=== PATIENT | female | born 1990 | race Caucasian/White ===

== ENCOUNTER 2019-03-07 04:12 | Inpatient (IN) ==
[2019-03-07] MEDS ORDERED: OXYTOCIN 30 UNITS/500 ML BAG IV PRN ×2 (04:48→14:29)
[2019-03-07] MEDS ORDERED: PENICILLIN G POTASSIUM 3 MU in DEXTROSE 5% 100 ML IV PRN (05:00)
[2019-03-07] MEDS ORDERED: PENICILLIN G POTASSIUM 6 MU in DEXTROSE 5% 250 ML IV ONE (05:00)
[2019-03-07] MEDS: LACTATED RINGER'S 1,000 ML IV PRN ×3 (05:06→10:48)
[2019-03-07] MEDS ORDERED: fentaNYL citrate 100 MCG/2 ML VIAL ONE (05:24)
[2019-03-07] MEDS ORDERED: BUPIVACAINE 0.25% 30 ML VIAL ONE (05:25)
[2019-03-07] MEDS ORDERED: ePHEDrine sulfate 50 MG/ML AMP ONE (05:25)
[2019-03-07] MEDS ORDERED: fentaNYL 2MCG/ML ROPIV 1.25MG/ML 100 ML BAG EPI ONE (05:25)
[2019-03-07 05:26] LABS: Hematocrit (blood only) 37.3 % (37-47); Hemoglobin 12.5 g/dL (12.0-16.0); Mean Corpuscular Hemoglobin 29.9 pg (25-34); Mean Corpuscular Volume 89.2 fL (80-100); Platelet Count 188 K/uL (130-400); RDW Coefficient of Variation 13.8 % (11.5-14.5); RDW Standard Deviation 45.3 fL (36.4-46.3); Red Blood Count 4.18 M/uL (4.2-5.4); White Blood Count 8.47 K/uL (4.8-10.8)
[2019-03-07 05:31] LABS: Mean Corpuscular Hgb Conc 33.5 g/dL (32-36)
--- NOTE | 2019-03-07 06:21 | Anesthesiology Consultation ---
Date of Service March 07, 2019 Assessment & Plan Chart Review Chart Review: Acceptable Risk for Labor Epidural Consults Requested none History Height/Weight Height: 5 ft 5 in Weight: 79.379 kg Allergies Allergy/AdvReac Type Severity Reaction Status Date / Time No Known Drug Allergies Allergy Verified 03/06/19 13:38 Medications Home Medications Medication Instructions Recorded Confirmed Last Taken magnesium 400 mg PO DAILY 03/07/19 03/07/19 03/06/19 08:00 omega 1-ozp-ouj-fish oil [Fish Oil] 1 cap PO DAILY 03/07/19 03/07/19 03/05/19 08:00 vit no.[id number] 800 tab PO DAILY 03/07/19 03/07/19 03/06/19 08:00 [ Vitamin] riboflavin (vitamin B2) 400 mg PO DAILY 03/07/19 03/07/19 03/06/19 08:00 Active Medications Generic Name Dose Route Start Last Admin Trade Name Freq PRN Reason Stop Dose Admin Lactated Ringer's 1,000 mls @ 125 mls/hr 03/07/19 04:48 03/07/19 05:06 Lr IV 03/09/19 04:47 999 mls/hr .Q8H PRN Administration L&D Protocol Protocol Past Medical History Medical History 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 Encounter for supervision of normal in first trimester LORI (stress urinary incontinence, female) Varicella Past Family History Family History Family/Other Colorectal cancer Maternal GREAT grandmother Grandmother (Paternal) Breast cancer Aunt Breast cancer Mother Thyroid disease Endometriosis Preeclampsia Grandmother (Maternal) Cardiac disorder Grandfather Hyperlipidemia Family/Other Colorectal cancer Past Surgical History Surgical History H/O wisdom tooth extraction History of repair of ACL Social History Smoking Status: Never smoker Do You Dip or Chew Tobacco: No Hx Alcohol Use: No Hx Substance Use: No substance use type: does not use Physical Exam Vital Signs Last Vital Signs Temp 36.5 C 03/07/19 05:36 Pulse 69 03/07/19 06:17 Resp 18 03/07/19 05:36 BP 95/48 L 03/07/19 06:17 Pulse Ox 100 03/07/19 06:17 Testing Laboratory Results 03/07/19 05:15
[2019-03-07] MEDS ORDERED: NALOXONE HCL 0.4 MG/1 ML VIAL/CARP IV PRN (06:26)
[2019-03-07] MEDS ORDERED: fentaNYL 2MCG/ML ROPIV 1.25MG/ML 100 ML BAG EPI PRN (06:26)
[2019-03-07] MEDS ORDERED: DiphenhydrAMINE HCL 50 MG/ML VIAL IV PRN (06:26)
[2019-03-07] MEDS ORDERED: ePHEDrine sulfate 50 MG/ML AMP IV PRN (06:26)
[2019-03-07] MEDS ORDERED: NALBUPHINE HCL INJ 10 MG/ML AMP IV PRN (06:26)
[2019-03-07] MEDS ORDERED: NALOXONE HCL 1 MG in SODIUM CHLORIDE 0.9% 1000ML 1,000 ML IV PRN (06:26)
[2019-03-07] MEDS ORDERED: BENZOCAINE 20% AER SPR 82.5 GM CAN EXT PRN (14:29)
[2019-03-07] MEDS ORDERED: DIPHTHERIA/TETANUS/PERTUSSIS 0.5 ML SYR/VIAL IM ONE (14:29)
[2019-03-07] MEDS ORDERED: ACETAMINOPHEN 325 MG TAB PO PRN (14:29)
[2019-03-07] MEDS ORDERED: bisacodyL 10 MG SUPP PR PRN (14:29)
[2019-03-07] MEDS ORDERED: SUPERCREAM 0.870% 15 GM JAR EXT PRN (14:29)
[2019-03-07] MEDS ORDERED: HYDROCORTISONE ACETATE 25 MG SUPP PR PRN (14:29)
--- NOTE | 2019-03-07 14:54 | Delivery Summary ---
DATE OF OPERATION: 03/07/2019 The patient is a 29-year-old 2, para 1-0-0-1 white female, EDC of 03/02/2019, who presented in active labor. She had been scheduled for induction on the as well. She was 5 cm upon arrival. She received epidural analgesia that was effective. Membranes were ruptured for clear fluid. She progressed to full dilation and pushed effectively over intact perineum for delivery of a viable male infant. Mouth and nasopharynx were suctioned. After the head was delivered, the posterior arm delivered as well. Rest of the infant then delivered easily and was placed on the mother's abdomen for further attention and drying. There was a loose cord x2 around the anterior arm as well as a double knot, true knot in the umbilical cord. There was vigorous crying and the infant was moving all 4 limbs. The cord was clamped and cut after 30 seconds. The placenta was expressed intact with a 3-vessel cord. A first-degree perivaginal laceration was repaired with 3-0 chromic in the usual fashion. Estimated blood loss was 300 mL. Mother and were doing well after delivery. I attest to the content of the Intraoperative Record and any orders documented therein. Any exception s are noted below.
[2019-03-07] MEDS: IBUPROFEN 600 MG TAB PO PRN ×2 (16:38→20:27)
--- NOTE | 2019-03-07 16:47 | Anesthesia Procedure Note ---
Date of Service March 07, 2019 Anesthesia Post Epidural Note Vital Signs Vital Signs: Temp Pulse Resp BP Pulse Ox 36.8 C 72 20 140/64 99 03/07/19 15:43 03/07/19 15:43 03/07/19 15:43 03/07/19 15:43 03/07/19 13:32 Notes Mental Status: alert / awake / arousable and participated in evaluation Nausea / Vomiting: adequately controlled Pain: adequately controlled Airway Patency, RR, SpO2: stable & adequate BP & HR: stable & adequate Hydration State: stable & adequate Neuraxial Anesthesia: was administered and sensory block is resolving Anesthetic Complications: no major complications apparent and Pt Satisfied with anesthetic care Epidural: Removed without complications and With tip intact Notes: Epidural site clean, dry and intact. No signs of edema, erythema or bruising at insertion site. Pt instructed to request anesthesia if she has residual lower extremity numbness or if she develops lower extremity pain or weakness, back pain or headache.
[2019-03-07] MEDS: DOCUSATE SODIUM 100 MG CAP PO SCH (20:26)
[2019-03-08] MEDS: IBUPROFEN 600 MG TAB PO PRN ×4 (00:23→14:36)
--- NOTE | 2019-03-08 02:23 | History & Physical Report ---
Date of Service March 08, 2019 Assessment & Plan (1) Term delivered vaginally, current hospitalization: 03/08/2019: 40-5 weeks gestation. 29-year-old 2 para 1-2. GBS positive. Rupture of membranes 3.9 hours prior to delivery. Moderate meconium. . Mother treated with 2 doses of penicillin prior to delivery. Maternal antepartum T-max =37 degrees. EOS scores: At = 0.07. Well-appearing = 0.03. Equivocal = 0.34 ("no additional care"). Clinical illness = 1.46 ("consider antibiotic treatment"). No role for labs, blood culture, or antibiotics at this time. Temperatures stable and within normal limits. Other vital signs also stable and within normal limits. Breast-feeding okay. History of choroid plexus cysts bilaterally on September 2018 ultrasound. Choroid plexus cysts resolved on the 12/12/2018 ultrasound. Normal exam. + Caput succedaneum. + Shallow sacrococcygeal dimple. Base visualized. AGA. O+/O+/FRANCISCO negative. Routine nursery care. Delivery Information Information Weight: 3.859 kg Length (inches): 1.65 m Sex: F Race: White Date of : 03/07/19 Time of : 13:33 Method of Delivery Type of Delivery: Gestational Age Gestational Age (weeks): 40 Mother's Information Blood Type: O+ Maternal Age: 31 : 2 Para: 2 Group B Strep Status: Positive (Rupture of membranes 3.9 hours prior to delivery. Moderate meconium. Mother received 2 doses of penicillin prior to delivery.) VDRL: non-reactive Rubella Status: Immune HbSAg: negative HIV: negative Chlamydia: negative Gonorrhea: negative Delivery Care Additional Comments: ultrasound in September 2018 had bilateral choroid plexus cysts. Repeat ultrasound on 12/12/2018 was normal. Choroid plexus cyst resolved. Paternal grandfather has a history of "Choroideremia" ("retinal disorder"); X linked. FOB not affected. Baby not at risk because it is X linked. Mother is an child welfare manager. Scoring score (1 min): 8 score (5 min): 9 Physical Exam Physical Exam: 03/08/2019: Constitutional: No obvious dysmorphic or syndromic features. Comfortable, normal appearance and normal tone; no apparent distress, cry not abnormal. Normal color. AGA male. Eyes: Normal red reflex bilaterally ENMT: Ears: Normal ears. Nose: nares patent. Mouth: no lip deformity, no palate deformity, no cleft lip and no cleft palate. Respiratory: Normal respiratory effort; no respiratory distress, no accessory muscle use, not tachypneic, no grunting, no nasal flaring and no retractions Auscultation: lungs clear and normal breath sounds Cardiovascular: Rate/Rhythm: regular rate and regular rhythm Heart Sounds: no gallop and no murmurs. Vessels: normal femoral and brachial pulses bilaterally. Gastrointestinal (Abdomen): Inspection/Auscultation: Normal abdominal appearance. Normal bowel sounds; no umbilical stump abnormality Percussion/Palpation: abdomen soft; no palpable abdominal masses; no hepatomegaly and no splenomegaly Anus patent. Musculoskeletal: Head/Neck: + Molding, + Caput. Anterior fontanelle open and flat. No cephalohematoma Spine: + Shallow sacrococcygeal dimple. Base visualized. No obvious deformities. Extremities: Clavicles intact. Normal hips; no hip clicks. No c yanosis. Skin: normal color; no jaundice, no pallor and no abnormal lesions. Neurologic: Reflexes: normal Luciana reflex, normal suck and normal grasp. Genitourinary: Normal male genitalia. Testes descended bilaterally. Testes symmetric. PG Care Time/CCT Total # of Minutes Spent Total Time Spent with Patient: Total time spent is greater than 50% in coordination of care (as documented) at patient's floor/unit and/or counseling patient: Coding Level of Care Code 74027 Initial H&P Diagnoses Term delivered vaginally, current hospitalization Z38.00
--- NOTE | 2019-03-08 06:17 | Obstetrical Progress Note ---
Date of Service <Ivonne Nichols DO - Last Filed: 03/08/19 07:09> March 08, 2019 Assessment & Plan <Ivonne Nichols DO - Last Filed: 03/08/19 07:09> (1) Encounter for care and examination after delivery: 29 yo F PPD #1 following vaginal delivery at 40.5 weeks without complications during delivery; doing well and without complaints this morning. - PPD #1 - Blood type O+, Rubella immune. - Feels well, ambulating well, voiding well. - Will continue routine care. - Following d/c will have f/u in 6 weeks. - Answered all patient questions. Subjective <Ivonne Nichols DO - Last Filed: 03/08/19 07:09> Patience is a 29 yo female ; PPD # 1 following vaginal delivery at 40.5weeks; doing well this AM; no abdominal cramping/pain; voiding well; tolerating meals overnight, able to ambulate some within the room. Is and not having any issues with latching. Had questions about when she can return to exercise. She also has questions about short term disability. Desires discharge, however her son still needs his circumcision today and she was GBS +, adequately treated with PCN. Review of Systems Constitutional: denies fever, chills, sweats, headache Respiratory: denies SOB, difficulty breathing Cardiac: denies CP, chest palpitations, chest pressure Breast: denies breast pain : denies dysuria Physical Exam <Ivonne Nichols DO - Last Filed: 03/08/19 07:09> General: patient is alert and oriented, in NAD Cardiac: +S1/S2, no murmurs rubs or gallops Respiratory: lungs CTA b/l, anteriorly and posteriorly, no wheezes rales or rhonchi, no increased work of breathing, symmetric chest rise, no respiratory distress Abdomen: soft, NT, +bowel sounds Uterus: uterine fundus firm, palpable below the level of the umbilicus Lower Extremities: no LE edema or swelling, no deep calf pain, Diana's sign negative b/l Results & Data <Ivonne Nichols - Last Filed: 03/08/19 07:09> Vital Signs (Past 12 Hours) Vital Signs Temp Pulse Resp BP Pulse Ox 01/24/20 03:25 36.5 C 62 16 106/63 98 03/07/19 23:15 36.6 C 60 16 104/66 99 03/07/19 19:45 37.0 C 75 16 117/69 98 Medications Administered Current Medications Acetaminophen (Tylenol) 650 mg PO Q6H PRN PRN Reason: Pain/WASHBURN/Fever Stop: 04/06/19 14:28 Benzocaine (Dermoplast Pain Relieving [place]) 1 appln EXT PRN PRN PRN Reason: Perineal Discomfort Stop: 04/06/19 14:28 Bisacodyl (Dulcolax) 5 mg PO 1999 [facility] Stop: 03/08/19 20:01 Bisacodyl (Dulcolax) 10 mg FL DAILY PRN PRN Reason: No BM on 2nd post- day Stop: 04/06/19 14:28 Cocaine HCl (Supercream 0.870%) 1 gm EXT BID PRN PRN Reason: Hemorrhoidal Inflammation Stop: 03/21/19 14:28 Diphenhydramine HCl (Benadryl) 25 mg IV Q6H PRN PRN Reason: Itching Stop: 03/08/19 06:25 Docusate Sodium (Colace) 100 mg PO DAILY@08, [facility] Stop: 04/06/19 20:59 Last Admin: 03/07/19 20:26 Dose: 100 mg Documented by: Ephedrine Sulfate (Ephedrine Sulfate) 10 mg IV Q5M PRN PRN Reason: Hypotension Stop: 03/08/19 06:25 Hydrocortisone (Anusol Hc) 25 mg FL BID PRN PRN Reason: Hemorrhoidal Inflammation Stop: 04/06/19 14:28 Lactated Ringer's (Lr) 1,000 mls @ 125 mls/hr IV .Q8H PRN; Protocol PRN Reason: L&D Protocol Stop: 03/09/19 04:47 Last Infusion: 03/07/19 13:37 Dose: 0 mls/hr Documented by: Oxytocin (Pitocin) 30 units in 500 mls @ 333.333 mls/hr IV .Q1H30M PRN; Protocol PRN Reason: Bleeding Control Stop: 04/06/19 04:47 Naloxone HCl 1 mg/ Sodium (Chloride) 1,002.5 mls @ 50 mls/hr IV .Q20H3M PRN PRN Reason: itching or nausea Stop: 03/08/19 06:25 Oxytocin (Pitocin) 30 units in 500 mls @ 333.333 mls/hr IV .Q1H30M PRN; Protocol PRN Reason: Bleeding Control Stop: 04/06/19 14:28 Last Titration: 03/07/19 15:41 Dose: Infused Documented by: Ibuprofen (Motrin) 600 mg PO Q4H PRN PRN Reason: Pain/WASHBURN/Cramping/Fever Stop: 04/06/19 14:28 Last Admin: 03/08/19 05:38 Dose: 600 mg Documented by: Nalbuphine HCl (Nubain) 5 mg IV Q10M PRN PRN Reason: itching or nausea Stop: 03/08/19 06:25 Naloxone HCl (Narcan) 0.1 mg IV UD PRN PRN Reason: Respiratory Depression Stop: 03/08/19 06:25 Prenat Multivit/[place]/Iron/Folic Ac ( Vitamin) 1 tab PO DAILY@08 MARY Stop: 04/07/19 07:59 Ropivacaine (Epidural (L&D)) 100 ml EPI PRN PRN; Protocol PRN Reason: Pain R/T Labor Stop: 03/08/19 06:25 <Akua Austin MD, FACOG - Last Filed: 03/08/19 08:07> Co-Signing Physician Notes Resident Physician Supervision Note: I interviewed and examined the patient. Discussed with Dr. Nichols and agree with findings and plan as documented in the note. Any exceptions or clarifications are listed here: [None] Documented By: Akua Austin MD, FACOG Resident Activity Tracking <Ivonne Nichols DO - Last Filed: 03/08/19 07:09> Resident Involvement: Resident Care Provided Care Provided: OB Delivery
[2019-03-08 07:50] LABS: Hematocrit (blood only) 31.4 % (37-47); Hemoglobin 10.6 g/dL (12.0-16.0); Mean Corpuscular Hemoglobin 30.4 pg (25-34); Mean Corpuscular Hgb Conc 33.8 g/dL (32-36); Platelet Count 180 K/uL (130-400); RDW Coefficient of Variation 14.4 % (11.5-14.5); RDW Standard Deviation 47.6 fL (36.4-46.3); Red Blood Count 3.49 M/uL (4.2-5.4); White Blood Count 9.62 K/uL (4.8-10.8)
[2019-03-08] MEDS ORDERED: PRENATAL VITAMIN 1 TAB PO SCH (08:00)
[2019-03-08] MEDS: DOCUSATE SODIUM 100 MG CAP PO SCH (08:46)
[2019-03-08] MEDS ORDERED: NON-FORMULARY MEDICATION (Riboflavin (Vitamin B2) 400 MG) PO SCH (09:00)
[2019-03-08] MEDS ORDERED: MAGNESIUM OXIDE 400 MG TAB PO SCH (09:15)
[2019-03-08] MEDS ORDERED: [UNRECOGNIZED DRUG - OTHER] SCH (16:00)
[2019-03-08] MEDS ORDERED: bisacodyL 5 MG TABEC PO SCH (20:00)
== END 2019-03-08 15:00 | disposition home or self-care (01) | DRG 807 ==
LOC: OPB 04:12 → 4S1 04:13 → 4S2 16:08